=== PATIENT | male | born 1990 | race Two or more races ===

== ENCOUNTER 2020-01-11 15:06 | Emergency (ER) | payer SELFPAY ==
[~2020-01-11] VITALS: Ht 177.8 cm; Wt 74.8 kg
--- NOTE | 2020-01-11 15:24 | Emergency Room Report ---
History of Present Illness General Chief Complaint: Eye Problems Source: Patient Present Illness HPI 29-year-old male with no significant past medical history here complaining of left eye pain x1 week. Denies any trauma, reports that he woke up with this eye pain and discharge about a week ago. Complains of blurry vision. Denies any fever and chills, cough and congestion. Denies photophobia. Has not taken medication for symptom relief. He reports that he has had this happening to him in the past 2 and usually gets an antibiotic eyedrop. Denies any trauma to the eye. Visual activity within normal limits Allergies: Coded Allergies: No Known Allergies (Unverified , 01/11/20) COVID-19 Screening Contact w/high risk pt: No Recent Travel to affected area: No Experienced COVID-19 symptoms?: No COVID-19 Testing performed BOOKKEEPING ASSISTANT: No Patient History Past Medical History: see triage record Past Surgical History: none Pertinent Family History: none Immunizations: UTD Reviewed Nursing Documentation: PMH: Agreed; PSxH: Agreed Nursing Documentation-PMH Past Medical History: No Stated History Review of Systems All Other Systems: negative except mentioned in HPI Physical Exam Vital Signs Date Time Temp Pulse Resp B/P (MAP) Pulse Ox O2 Delivery O2 Flow Rate FiO2 01/11/20 15:13 98.1 97 16 121/78 (92) 100 Room Air Sp02 EP Interpretation: reviewed, normal General Appearance: no apparent distress, alert, GCS 15, non-toxic Head: normocephalic, atraumatic Eyes: left eye other - Conjunctive are injected with yellow discharge; bilateral eye PERRL ENT: hearing grossly normal, normal pharynx, no angioedema, normal voice Neck: full range of motion, supple/symm/no masses Respiratory: chest non-tender, lungs clear, normal breath sounds, speaking full sentences Cardiovascular #1: regular rate, rhythm, no edema Gastrointestinal: non tender, soft Rectal: deferred Musculoskeletal: back normal Neurologic: alert, oriented Skin: no rash Lymphatic: no adenopathy Medical Decision Making PA Attestation All my diagnosis and treatment plans were reviewed ad discussed with my supervising physician Dr. Fine Diagnostic Impression: Primary Impression: Bacterial conjunctivitis ER Course 29-year-old male with no significant past medical history here complaining of left eye pain x1 week. Denies any trauma, reports that he woke up with this eye pain and discharge about a week ago. Complains of blurry vision. Denies any fever and chills, cough and congestion. Denies photophobia. Has not taken medication for symptom relief. He reports that he has had this happening to him in the past 2 and usually gets an antibiotic eyedrop. Denies any trauma to the eye. Visual activity within normal limits Ddx considered but are not limited to: bacterial conjunctivitis, allergic conjunctivitis, viral conjunctivitis, periorbital cellulitis, global trauma Vital signs: are WNL, pt. is afebrile H&PE are most consistent with: Bacterial conjunctivitis, visual x-ray was within normal limits, no signs of trauma noted, ORDERS: Ofloxacin ophthalmic, prednisone, ibuprofen ED INTERVENTIONS: None required at this time. DISCHARGE: At this time pt. is stable for d/c to home. Will provide printed patient care instructions, and any necessary prescriptions. Care plan and follow up instructions have been discussed with the patient prior to discharge. Take medication as directed, follow primary doctor, if worsening symptoms return to the emergency room patient was advised to follow-up with position classification specialist. Last Vital Signs Date Time Temp Pulse Resp B/P (MAP) Pulse Ox O2 Delivery O2 Flow Rate FiO2 01/11/20 15:13 98.1 97 16 121/78 (92) 100 Room Air Disposition: HOME, SELF-CARE Condition: Stable Scripts Ibuprofen* (MOTRIN*) 600 Mg Tablet 600 MG ORAL FOUR TIMES A DAY, #30 TAB 0 Refills Prov: Marleen Vang 01/11/20 Prednisone* (PREDNISONE*) 10 Mg Tablet 20 MG ORAL DAILY for 5 Days, #10 TAB 0 Refills Prov: Marleen Vang 01/11/20 Ofloxacin (Ofloxacin) 5 Ml Drops 2 DROP OP Q6HR for 7 Days, #5 ML Prov: Marleen Vang 01/11/20 Patient Instructions: Bacterial Conjunctivitis, [id number] Additional Instructions: Take medication as directed, follow primary doctor, change your pillowcase, wear protective sunglasses, if worsening symptoms return to the emergency room. You need to also be seen by an position classification specialist Marleen Vang January 11, 2020 15:24
[2020-01-11 15:25] VITALS: BP 130/73
[2020-01-11] MEDS ORDERED: PREDNISONE10 MG ORAL (15:25)
[2020-01-11] MEDS ORDERED: OFLOXACIN10 ML OP (15:25)
[2020-01-11] MEDS ORDERED: IBUPROFEN600 M1 ORAL (15:25)
--- NOTE | 2020-01-11 15:25 | NUR ---
ED Nurse Note: Pt walked into ED w/ c/o L eye redness and pain for 7 days. Pt is alert and orientedx4, amb. Pt has had infection in L eye before. He also has teary eyes.
[2020-01-11 15:32] VITALS: BP 132/71
--- NOTE | 2020-01-11 15:32 | NUR ---
ER DISCHARGE NOTE: Patient is cleared to be discharged per ERMD, pt is aox4, on room air, with stable vital signs. pt was given dc and prescription instructions, pt was able to verbalize understanding, pt id band removed. pt is able to ambulate with steady gait. pt took all belongings. Pt educated regarding conjunctivits.
== END 2020-01-11 15:32 | disposition home or self-care (01) ==
LOC: EMR 15:22
DX: H10.9 Unspecified conjunctivitis (principal)
CPT/HCPCS: 99282